=== PATIENT | female | born 1945 | race Caucasian/White ===

== ENCOUNTER 2016-09-06 10:54 | Day surgery (SDC) | payer MEDICARE, OTHER ==
[~2016-09-06] VITALS: Ht 167.6 cm; Wt 71.0 kg
[~2016-09-06 10:54] MED LIST: 0.9% Sodium Chloride 1,000 ML IV SCH; Sodium Chloride LOK Flush 10 mL Syringe IV PRN; fentaNYL-PF 50 mCg/mL 2 mL Inj IVPUSH PRN
[2016-09-06 11:13] VITALS: BP 177/94; PULSE 71; RESP 14; O2SAT 99
[2016-09-06] MEDS ORDERED: PANT40TA3 PO (11:16)
[2016-09-06] MEDS ORDERED: PRAV10TA2 PO (11:16)
[2016-09-06] MEDS ORDERED: DILT240C89 PO (11:16)
[2016-09-06] MEDS ORDERED: GABA-502 PO (11:16)
[2016-09-06] MEDS ORDERED: DULO30CA50 PO (11:16)
[2016-09-06] MEDS ORDERED: BENA1TAB13 PO (11:16)
[2016-09-06] MEDS ORDERED: OXYB5TAB10 PO (11:16)
[2016-09-06] MEDS ORDERED: ASPI-973 PO (11:20)
[2016-09-06] MEDS ORDERED: fentaNYL-PF 50 mCg/mL 2 mL Inj ONE (11:44)
[2016-09-06] MEDS ORDERED: 0.9% Sodium Chloride 1,000 ML IV ONE (12:05)
[2016-09-06 12:16] VITALS: BP 142/76; PULSE 71; RESP 16; O2SAT 98
[2016-09-06 12:26] VITALS: BP 164/80; PULSE 68; RESP 16; O2SAT 96
[2016-09-06 12:36] VITALS: BP 174/92; PULSE 68; RESP 16; O2SAT 98
--- NOTE | 2016-09-06 20:48 | ENDO ---
[address] [address] ENDOSCOPY PROCEDURE PATIENT: MANUEL MALDONADO : 1945 MR#: [id number] ADMIT: 09/06/2016 JOB ID: [id number] OPERATION: Colonoscopy. PREOPERATIVE DIAGNOSIS: History of colon polyps. POSTOPERATIVE DIAGNOSIS: 1. Singh diverticulosis in the sigmoid, descending, transverse and ascending colon. 2. Small internal hemorrhoids. ANESTHESIA: 1. Fentanyl 100 mcg. 2. Versed 5 mg IV administered. COMPLICATION: None. ESTIMATED BLOOD LOSS: Minimal. DESCRIPTION OF PROCEDURE: After risks and benefits were explained to the patient, informed consent was obtained. After anesthesia administered, colonoscope was then inserted per the rectum to cecum and mucosa carefully examined. Prep of the patient was excellent. After procedure was done, the scope withdrawn and procedure terminated. FINDINGS: Upon inspection of the anus, no masses, hemorrhoids, ulcers, fissures that were seen throughout the entire examination. There were no polyps that were seen. There was singh diverticulosis seen in the sigmoid, descending, transverse and ascending colon. Retroflexion showed small internal hemorrhoids. IMPRESSION: 1. Small internal hemorrhoids. 2. Diverticulosis in the sigmoid, ascending, descending and transverse colon, moderate. RECOMMENDATIONS: High-fiber diet. Repeat colonoscopy in five years.
== END 2016-09-06 23:59 | disposition home or self-care (01) ==
LOC: END 10:54
PROVIDERS: ATTEND Internal Medicine Gastroenterology
DX: Z12.11 Encounter for screening for malignant neoplasm of colon (principal); Z86.010 Personal history of colon polyps; K57.30 Diverticulosis of large intestine without perforation or abscess without bleeding; K64.8 Other hemorrhoids; I10 Essential (primary) hypertension; K21.9 Gastro-esophageal reflux disease without esophagitis; M79.7 Fibromyalgia; F41.8 Other specified anxiety disorders; E78.00 Pure hypercholesterolemia, unspecified; M85.80 Other specified disorders of bone density and structure, unspecified site; Z85.42 Personal history of malignant neoplasm of other parts of uterus
CPT/HCPCS: G0105; G0500; J2250; J3010; J7030